=== PATIENT | female | born 1995 | race Caucasian/White ===

== ENCOUNTER 2016-09-16 21:12 | Emergency (ER) | payer BC ==
--- NOTE | ~2016-09-16 | ER ---
PATIENT'S NAME: SANDRA SOSA [facility] AGE: 21 Y [address] ROOM: [place] [address] LOCATION: [facility] ADMIT DATE: 09/16/2016 ER/Outpatient Report DISCHARGE DATE: 09/16/2016 FAMILY PHYSICIAN: Bravo Stratton MD ATTENDING PHYSICIAN: Zain De León Time of Arrival: 2116 hours. Time of Exam: 2116 hours. CHIEF COMPLAINT: Abdominal pain. HISTORY OF PRESENT ILLNESS: The patient states that she has been having problems with constipation for the past week. She did go to urgent care center today and they recommended that she drink some magnesium citrate. She states when she got home from that appointment, she was able to have a bowel movement. It was hard formed stool. Denies any blood in it. She thought maybe the pain would go away after the bowel movement, but she continues to have generalized abdominal pain. She says it starts low and goes up. Also has some pain into her back. She denies being nauseated, has not vomited, has not had fever or chills. Denies any pain with urination. Has not had frequency of urination. ALLERGIES: ON HER CHART AND REVIEWED BY ME. PAST MEDICAL HISTORY: Seizure disorder, anxiety, depression, ovarian cyst. PAST SURGERIES: Include cholecystectomy, appendectomy, foot surgery, and nose surgery. LAST MENSTRUAL PERIOD: She states she has an IUD and she is not sure when her last period was. She does not have periods on a routine basis. She did have a baby back in October of 2015. SOCIAL HISTORY: She denies the use of tobacco, drugs, or alcohol. REVIEW OF SYSTEMS: All negative other than those mentioned in the HPI. PHYSICAL EXAMINATION: VITAL SIGNS: She weighed 74.1 kg. Blood pressure is 115/69, pulse is 71, PATIENT'S NAME: SANDRA SOSA [facility] AGE: 21 Y [address] ROOM: [place] [address] LOCATION: [facility] ADMIT DATE: 09/16/2016 ER/Outpatient Report DISCHARGE DATE: 09/16/2016 FAMILY PHYSICIAN: Bravo Stratton MD ATTENDING PHYSICIAN: Zain De León respirations 16, temperature of 98, tympanic, O2 saturation was 98% on room air. GENERAL: She is awake, alert, and oriented x4. SKIN: [place], warm, and dry. RESPIRATIONS: Even and nonlabored. Lung sounds are clear throughout. HEART: Regular rate and rhythm. ABDOMEN: Soft and nondistended. Bowel sounds are present throughout all four quadrants. She is tender to palpate everywhere, more focused in the left lower quadrant. The patient was able to ambulate to the bathroom and void. EMERGENCY DEPARTMENT COURSE: Clean-catch UA does show some leukocytes with micro, 10-20 epithelials and only 2-5 are white blood cells. CBC is within normal limits. Chem panel is within normal limits. Serum is negative. Abdominal 3-way x-ray was completed. She has stool diffusely throughout her colon. IMPRESSION: Constipation. PLAN: I encouraged the patient to go ahead and drink the magnesium citrate as recommended by urgent care today. Did talk with her whether she wants to drink it tonight or wait till morning, as it could interfere with her ability to get any rest tonight. She should increase her fluids. She can do Tylenol or ibuprofen for discomfort. Discussed with her not to take anything stronger for pain at this time because it could add to the constipation. If she has no results from the magnesium citrate, I did talk with her about trying a Fleet Enema. If her symptoms persist or worsen, then she is to follow up with her primary provider in the next 2-3 days or return to the ER. She verbalized understanding. MAXWELL LOPEZ APRN FOR DO ROOPA MEJIA/halina /[id number] d: 09/17/16 0609 t: 09/21/16 1504, OUTPATIENT REPORT
[~2016-09-16 21:12] MED LIST: DESYREL50 MG PO; DRISDOL 5050000 UNIT PO; Iron PO; KEFLEX500 MG PO; KLONOPIN1 MG PO; LEVOTHROID (S100 MCG PO; LORAZEPAM0.5 MG PO; MOTRIN800 MG PO; PAXIL20 MG PO; PERCOCET 5-3251 EACH PO; PRENATAL 1+1)(P1 TAB PO; VITAMIN B12 SL; VITAMIN D35000 UNI1 PO; ZYRTEC10 MG PO
[2016-09-16 21:45] LABS: BASOPHIL # 0.1 K/uL (0.0-0.2); BASOPHIL % 0.7 %; EOSINOPHIL # 0.2 K/uL (0.0-0.5); EOSINOPHIL % 1.7 %; HEMATOCRIT 35.5 % (33.0-46.0); HEMOGLOBIN 12.1 g/dL (11.0-15.0); IMMATURE GRANULOCYTE % 0.2 %; LYMPHOCYTE # 3.3 K/uL (0.8-4.0); MCH 31.6 pg (27.0-34.0); MCHC 34.1 gm/dL (32.0-36.5); MCV 92.7 fl (83.0-98.0); MONOCYTE # 0.7 K/uL (0.0-1.0); MONOCYTE % 7.7 %; MPV 10.9 fl (9.4-12.4); NEUTROPHIL # (ANC) 4.5 K/uL (1.8-7.8); NEUTROPHIL % 51.7 %; NRBC % 0 /100WBC (0-0.00); PLATELET COUNT 227 K/uL (150-450); RBC 3.83 M/uL (3.50-5.00); RDW-CV 13.4 % (11.9-14.6); WBC 8.7 K/uL (4.0-11.0)
[2016-09-16 21:53] LABS: BILIRUBIN URINE NEGATIVE (NEGATIVE); BLOOD URINE NEGATIVE /UL (NEGATIVE); COLOR URINE YELLOW (YELLOW); GLUCOSE URINE NEGATIVE (NEGATIVE); KETONE URINE NEGATIVE (NEGATIVE); LEUKOCYTES URINE 25 /UL (NEGATIVE); NITRITE URINE NEGATIVE (NEGATIVE); PROTEIN URINE NEGATIVE (NEGATIVE); SPEC GRAVITY URINE 1.015 (1.003-1.035); TURBIDITY URINE 2+ (CLEAR); UROBILINOGEN URINE NORMAL (NORMAL)
[2016-09-16 21:58] LABS: RBC URINE NEGATIVE #/HPF (NEGATIVE)
[2016-09-16 21:59] LABS: AMORPHOUS URINE 2+ (NEGATIVE); BACTERIA URINE FEW (NEGATIVE)
[2016-09-16 22:03] LABS: ALBUMIN 3.8 gm/dL (3.5-5.0); ALK PHOS 76 IU/L (33-138); ALT 50 IU/L (12-78); ANION GAP 12.4 (10.0-19.0); AST 38 IU/L (10-40); BLOOD UREA NITROGEN 13 mg/dL (6-24); CALCIUM 8.4 mg/dL (8.5-10.5); CHLORIDE 108 mMol/L (96-110); CO2 25 mMol/L (22-32); CREATININE 0.7 mg/dL (0.5-1.1); ESTIMATED GFR (MDRD EQUATION) > 60; POTASSIUM 4.4 mMol/L (3.7-5.1); SODIUM 141 mMol/L (135-145); TOTAL BILIRUBIN 0.3 mg/dL (0.0-1.5); TOTAL PROTEIN 7.1 g/dL (6.0-8.4)
[2016-09-25] MEDS ORDERED: VITAMIN B-12500 MCG PO (16:17)
[2016-09-25] MEDS ORDERED: DESYREL100 MG PO (16:19)
[2016-09-25] MEDS ORDERED: FLONASE 50 MCG/16 GM NOSE (16:20)
[2016-09-25] MEDS ORDERED: PRENATAL 1+1)(P1 TAB PO (16:20)
[2016-09-25] MEDS ORDERED: CLARITIN10 MG PO (16:20)
[2016-09-25] MEDS ORDERED: CYMBALTA60 MG PO (16:21)
[2016-09-25] MEDS ORDERED: COLACE CLEAR50 MG PO (16:22)
[2016-09-25] MEDS ORDERED: ACIDOPHILUS CA1 EAC1 PO (16:23)
[2016-09-25] MEDS ORDERED: HYTRIN UD5 MG PO (16:23)
[2016-09-25] MEDS ORDERED: VITAMIN D35000 UNI1 PO (16:24)
[2016-09-25] MEDS ORDERED: TRILEPTAL600 MG PO (16:24)
[2016-09-25] MEDS ORDERED: TREXAN (REVIA)50 MG PO (16:24)
[2016-09-29] MEDS ORDERED: COLACE100 MG PO (10:28)
== END 2016-09-16 22:41 | disposition disaster alternative care site (69) ==
LOC: GMED 21:12
PROVIDERS: Nurse Practitioner Family
DX: K59.00 Constipation, unspecified (principal); G40.909 Epilepsy, unspecified, not intractable, without status epilepticus; F41.9 Anxiety disorder, unspecified; F32.9 Major depressive disorder, single episode, unspecified; Z90.49 Acquired absence of other specified parts of digestive tract; Z98.890 Other specified postprocedural states

== ENCOUNTER 2017-01-18 20:32 | Emergency (ER) | payer BC ==
--- NOTE | ~2017-01-18 | ER ---
PATIENT'S NAME: SANDRA SOSA [facility] AGE: 21 Y [address] ROOM: [place] [address] LOCATION: [facility] ADMIT DATE: 01/18/2017 ER/Outpatient Report DISCHARGE DATE: 01/18/2017 FAMILY PHYSICIAN: PHYSICIAN, NO ATTENDING PHYSICIAN: Arlene Zuniga SEEN AT: 2045 hours. CHIEF COMPLAINT: Midepigastric pain. HISTORY OF PRESENT ILLNESS: The patient is a 21-year-old female, who says over the last few weeks she has had intermittent midepigastric pain. The patient tonight said after an alcoholic beverage, she then experienced pain, which lasted for about 30 minutes. She states she was nauseated, but no vomiting. The patient described it as a squeezing sensation. She denied any radiation to the back. ALLERGIES: LAMICTAL, LEVAQUIN, AND MACROBID. CURRENT MEDICATIONS: See her copied list, which was reviewed. MEDICAL HISTORY: Exercise-induced asthma, chronic anxiety and depression. SURGERIES: She has had appendectomy, cholecystectomy, rhinoplasty, and left foot surgery. Last normal menstrual period is current. SOCIAL HISTORY: Quit smoking about 2 months ago. She is using vapor pens. Alcohol socially. REVIEW OF SYSTEMS: GENERAL: No recent fevers or chills. HEAD/EENT: No recent headache or sore throat. RESPIRATORY: Denies any shortness of breath or cough. GASTROINTESTINAL: Includes midepigastric pain. No weight loss. No change in bowel habits. Denies any diarrhea for the presence of blood in her stool. GENITOURINARY: She has started her period today. SKIN: No recent rash. PHYSICAL EXAMINATION: PATIENT'S NAME: SANDRA SOSA [facility] AGE: 21 Y [address] ROOM: [place] [address] LOCATION: [facility] ADMIT DATE: 01/18/2017 ER/Outpatient Report DISCHARGE DATE: 01/18/2017 FAMILY PHYSICIAN: PHYSICIAN, NO ATTENDING PHYSICIAN: Arlene Zuniga VITAL SIGNS: Temperature is 99.2, respiratory rate 18, and blood pressure 117/67. GENERAL APPEARANCE: White female. She is alert, was having no symptoms at the time of my exam. HEAD: Normocephalic. EYES: PERRLA. No icterus. NOSE: Septum midline. MOUTH: Teeth in good repair. Buccal membranes moist. LUNGS: Clear. HEART: No murmurs or gallop present. ABDOMEN: Slightly tender in the midepigastric. No organomegaly. She had scars present from her previous lap choly. No masses palpated. No CVA tenderness. SKIN: Clear. No bruising. LABORATORY DATA: Her H. pylori was negative. CBC: White count 5.7 and hemoglobin 11.7. CMS: Potassium was slightly low at 3.4 as well as her chloride 113. Her calcium was low at 7.7. Lipase was 297, within the normal range. Her liver function tests were all normal as well as bilirubin. GFR was greater than 60. Her test was negative. ASSESSMENT: 1. Midepigastric pain, possible reflux. 2. Chronic anxiety and depression. 3. Status post appendectomy and cholecystectomy. PLAN: Recommend she stop all NSAIDs, aspirin. Prilosec 20 mg daily for 14 days. Follow up with her primary care if symptoms continue. MICHELEL KEYS FOR MD DARIUS FLYNN/halina /[id number] d: 01/18/17 2308 t: 01/24/17 1009, OUTPATIENT REPORT
[~2017-01-18 20:32] MED LIST changes: +ACIDOPHILUS CA1 EAC1 PO; +CLARITIN10 MG PO; +COLACE CLEAR50 MG PO; +COLACE100 MG PO; +CYMBALTA60 MG PO; +DESYREL100 MG PO; +FLONASE 50 MCG/16 GM NOSE; +HYTRIN UD5 MG PO; +TREXAN (REVIA)50 MG PO; +TRILEPTAL600 MG PO; +VITAMIN B-12500 MCG PO
[2017-01-18 21:26] LABS: BASOPHIL # 0.1 K/uL (0.0-0.2); BASOPHIL % 0.9 %; EOSINOPHIL # 0.1 K/uL (0.0-0.5); EOSINOPHIL % 1.2 %; HEMATOCRIT 33.1 % (33.0-46.0); HEMOGLOBIN 11.7 g/dL (11.0-15.0); IMMATURE GRANULOCYTE % 0.2 %; LYMPHOCYTE # 1.4 K/uL (0.8-4.0); LYMPHOCYTE % 23.8 %; MCH 32.9 pg (27.0-34.0); MCHC 35.3 gm/dL (32.0-36.5); MONOCYTE # 0.4 K/uL (0.0-1.0); MONOCYTE % 7.6 %; MPV 10.7 fl (9.4-12.4); NEUTROPHIL # (ANC) 3.8 K/uL (1.8-7.8); NEUTROPHIL % 66.3 %; NRBC % 0 /100WBC (0-0.00); PLATELET COUNT 185 K/uL (150-450); RBC 3.56 M/uL (3.50-5.00); RDW-CV 12.4 % (11.9-14.6); WBC 5.7 K/uL (4.0-11.0)
[2017-01-18 21:44] LABS: ALBUMIN 3.5 gm/dL (3.5-5.0); ALK PHOS 60 IU/L (33-138); ALT 40 IU/L (12-78); ANION GAP 11.4 (10.0-19.0); AST 40 IU/L (10-40); BLOOD UREA NITROGEN 10 mg/dL (6-24); CALCIUM 7.7 mg/dL (8.5-10.5); CHLORIDE 113 mMol/L (96-110); CO2 21 mMol/L (22-32); CREATININE 0.8 mg/dL (0.5-1.1); ESTIMATED GFR (MDRD EQUATION) > 60; POTASSIUM 3.4 mMol/L (3.7-5.1); SODIUM 142 mMol/L (135-145); TOTAL BILIRUBIN 0.3 mg/dL (0.0-1.5); TOTAL PROTEIN 6.6 g/dL (6.0-8.4)
== END 2017-01-18 21:59 | disposition disaster alternative care site (69) ==
LOC: GMED 20:32
PROVIDERS: Physician Assistant Medical
DX: R10.13 Epigastric pain (principal); F41.9 Anxiety disorder, unspecified; F32.9 Major depressive disorder, single episode, unspecified; J45.990 Exercise induced bronchospasm; Z90.49 Acquired absence of other specified parts of digestive tract; Z87.891 Personal history of nicotine dependence; Z88.1 Allergy status to other antibiotic agents; Z88.8 Allergy status to other drugs, medicaments and biological substances; Z79.899 Other long term (current) drug therapy

== ENCOUNTER 2017-02-24 20:07 | Emergency (ER) | payer BC ==
--- NOTE | ~2017-02-24 | ER ---
PATIENT'S NAME: SANDRA SOSA [facility] AGE: 21 Y [address] ROOM: [place] [address] LOCATION: [facility] ADMIT DATE: 02/24/2017 ER/Outpatient Report DISCHARGE DATE: 02/24/2017 FAMILY PHYSICIAN: Ag Esparza MD ATTENDING PHYSICIAN: Williams Beck Time of Patient's Arrival: 2006 hours. Time of Patient's Evaluation: 2034 hours. CHIEF COMPLAINT: Midepigastric abdominal pain. HISTORY OF PRESENT ILLNESS: This is a 21-year-old female who presents to the ER with midepigastric abdominal pain that started approximately 45 minutes prior to arrival. The patient has had 4 episodes of vomiting with this and she states her pain waxes and wanes in intensity. She states that she has had pain like this before and she comes to the emergency room for it and she states everything always checks out okay and she states that usually Prilosec helps it, but she has not been taking that lately. She states her baby is currently an inpatient here in the hospital and is being treated for vomiting and a viral illness, and she is wondering if maybe she has something like that. She has had no fever or chills. No troubles with urination. No blood in her stool, has had some diarrhea, however. The patient denies any other problems at this time. ALLERGIES: PLEASE SEE MEDICATION LIST IN NURSE'S NOTES. MEDICATIONS: Please see medication list in nurse's notes. PAST MEDICAL HISTORY: Anxiety and depression. PAST SURGICAL HISTORY: Cholecystectomy, appendectomy, rhinoplasty, and left foot surgery. SOCIAL HISTORY: Smokes half a pack a day for 1 year. Drinks alcohol occasionally. REVIEW OF SYSTEMS: All systems were reviewed and were negative with the exception of those discussed in the HPI. PHYSICAL EXAMINATION: PATIENT'S NAME: SANDRA SOSA [facility] AGE: 21 Y [address] ROOM: [place] [address] LOCATION: [facility] ADMIT DATE: 02/24/2017 ER/Outpatient Report DISCHARGE DATE: 02/24/2017 FAMILY PHYSICIAN: Ag Esparza MD ATTENDING PHYSICIAN: Williams Beck VITAL SIGNS: Height 5 feet 1 inch stated, weight 73.1 kg taken, blood pressure is 111/77, pulse 81, respirations 18, temperature 97.2 degrees tympanically, and saturations 97% on room air. Isaias Coma Score is 15. GENERAL: Alert, tearful, well-developed 21-year-old, in mild distress. HEENT: Head: Normocephalic. Eyes: Pupils are equal and reactive to light. Does display moist mucous membranes. LUNGS: Clear to auscultation bilaterally. HEART: Regular rate and rhythm. ABDOMEN: Soft. She is nontender in her midepigastric region with palpation. She has good bowel sounds throughout. No masses were palpated. EXTREMITIES: No clubbing, cyanosis, or edema. She has full range of motion of all limbs. LABORATORY DATA: CBC: White count is 9.7, hemoglobin is 14.9, platelets 238, and ANC is 7.3. CMS: Sodium 141, potassium 3.6, alkaline phosphatase is 82, AST is 154, ALT is 131, amylase 70, and lipase 189. Urinalysis is negative for any infection. She did have a contaminated specimen. Urine HCG was negative. H. pylori was negative. Ultrasound was done of the right upper quadrant shows a fatty liver. She has slight enlargement of her spleen, otherwise unremarkable. IMPRESSION: 1. Midepigastric abdominal pain. 2. Elevated liver enzymes. ASSESSMENT AND PLAN: We did give the patient initially a GI cocktail and some Zofran here. It did reduce her pain down to a 4/10. We then gave her some Percocet later in her stay, which did improve her pain as well. We will dismiss her to home. I advised her to keep taking her Prilosec as daily. She needs to eat bland foods, continue to push fluids, monitor her symptoms, and I did give her a prescription for Zofran to use as directed. The patient did not have any further emesis and her abdomen remained nonsurgical while she was here. She needs a followup with her primary care physician for followup care. The patient understands and agrees with care. LEXIE BERMUDEZ PA-C FOR MD SRIRAM ZIMMERMAN/halina /[id number] d: t: 02/28/17 1049, OUTPATIENT REPORT
[2017-02-24 20:43] LABS: BLOOD URINE NEGATIVE /UL (NEGATIVE); COLOR URINE YELLOW (YELLOW); GLUCOSE URINE NEGATIVE (NEGATIVE); KETONE URINE 15 mg/dL (NEGATIVE); LEUKOCYTES URINE 25 /UL (NEGATIVE); NITRITE URINE NEGATIVE (NEGATIVE); PROTEIN URINE 15 mg/dL (NEGATIVE); TURBIDITY URINE CLEAR (CLEAR); UROBILINOGEN URINE NORMAL (NORMAL)
[2017-02-24 20:53] LABS: AMORPHOUS URINE 1+ (NEGATIVE); BACTERIA URINE MANY (NEGATIVE); EPITHELIAL URINE 20-50 #/HPF (NEGATIVE); MUCUS URINE 1+ (NEGATIVE); RBC URINE RARE #/HPF (NEGATIVE)
[2017-02-24 20:55] LABS: BASOPHIL # 0.1 K/uL (0.0-0.2); BASOPHIL % 0.6 %; EOSINOPHIL % 0.4 %; HEMOGLOBIN 14.9 g/dL (11.0-15.0); IMMATURE GRANULOCYTE % 0.3 %; LYMPHOCYTE # 1.5 K/uL (0.8-4.0); LYMPHOCYTE % 15.7 %; MCV 91.8 fl (83.0-98.0); MONOCYTE # 0.8 K/uL (0.0-1.0); MONOCYTE % 8.2 %; MPV 10.9 fl (9.4-12.4); NEUTROPHIL # (ANC) 7.3 K/uL (1.8-7.8); NEUTROPHIL % 74.8 %; NRBC % 0 /100WBC (0-0.00); RDW-CV 12.4 % (11.9-14.6); WBC 9.7 K/uL (4.0-11.0)
[2017-02-24 21:04] LABS: HEMATOCRIT 41.5 % (33.0-46.0); MCHC 35.9 gm/dL (32.0-36.5); PLATELET COUNT 238 K/uL (150-450); RBC 4.52 M/uL (3.50-5.00)
[2017-02-24 21:12] LABS: ALBUMIN 4.2 gm/dL (3.5-5.0); ALK PHOS 82 IU/L (33-138); ALT 131 IU/L (12-78); ANION GAP 12.6 (10.0-19.0); AST 154 IU/L (10-40); BLOOD UREA NITROGEN 10 mg/dL (6-24); CALCIUM 9.1 mg/dL (8.5-10.5); CHLORIDE 110 mMol/L (96-110); CO2 22 mMol/L (22-32); CREATININE 0.9 mg/dL (0.5-1.1); POTASSIUM 3.6 mMol/L (3.7-5.1); SODIUM 141 mMol/L (135-145); TOTAL BILIRUBIN 0.7 mg/dL (0.0-1.5); TOTAL PROTEIN 7.8 g/dL (6.0-8.4)
== END 2017-02-24 22:54 | disposition disaster alternative care site (69) ==
LOC: GMED 20:07
PROVIDERS: Physician Assistant Medical
DX: R10.13 Epigastric pain (principal); R74.8 Abnormal levels of other serum enzymes; F41.9 Anxiety disorder, unspecified; F17.210 Nicotine dependence, cigarettes, uncomplicated; F32.9 Major depressive disorder, single episode, unspecified; Z90.49 Acquired absence of other specified parts of digestive tract; Z98.890 Other specified postprocedural states; Z88.8 Allergy status to other drugs, medicaments and biological substances; Z88.1 Allergy status to other antibiotic agents; Z79.899 Other long term (current) drug therapy